=== PATIENT | female | born 1995 | race Caucasian/White ===

== ENCOUNTER 2025-07-18 20:14 | Emergency (ER) | payer MEDICAID ==
[~2025-07-18] VITALS: Ht 162.6 cm; Wt 76.8 kg
[2025-07-18 20:39] VITALS: TEMP 36.9; O2SAT 100
[2025-07-18] MEDS ORDERED: LIDO700A30 TP (21:15)
[2025-07-18] MEDS: KETOROLAC 15MG/ML VIAL IM ONE (21:15)
[2025-07-18] MEDS: LIDOCAINE 5% PATCH TOP SCH (21:15)
[2025-07-18] MEDS: ACETAMINOPHEN 325MG TABLET PO ONE (21:20)
[2025-07-18 21:46] VITALS: BP 115/73; PULSE 78; RESP 14; O2SAT 100
== END 2025-07-18 21:57 | disposition home or self-care (01) ==
LOC: ER 20:14
DX: G57.00 Lesion of sciatic nerve, unspecified lower limb (principal); M54.50 Low back pain, unspecified; Z98.890 Other specified postprocedural states
CPT/HCPCS: 99283; 96372; J1885